=== PATIENT | female | born 1985 | race Hispanic/Latino ===

== ENCOUNTER → 2017-04-29 | Outpatient (CLI) | payer BC ==
--- NOTE | 2017-04-29 12:35 | Diagnostic Imaging Report ---
PROCEDURE:ABDOMINAL ULTRASOUND COMPARISON:None. INDICATIONS:RLQ PAIN TECHNIQUE: Donnelly-scale and color sonographic images were obtained of the abdomen in transverse and sagittal planes. FINDINGS: Liver: 13 cm in length in right midclavicular line. Mildly increased echogenicity. No masses. Main portal vein: 0.9 cm, hepatopetal flow Gallbladder: Present. No evidence of gallstone, gallbladder wall thickening, or pericholecystic fluid Common Bile Duct: 0.2 Sonographic Grier's sign: Negative Right kidney: 10 cm in length. The echotexture is normal. No evidence of calculus or mass. Left kidney: 11.1 cm in length. The echotexture is normal. No evidence of calculus or mass. Spleen: 10.1 cm. Echotexture is normal. No mass. Pancreas: The visualized portions are unremarkable. Inferior vena cava: Patent Aorta: Within normal limits Ascites: None CONCLUSION: Mildly increased hepatic echotexture suggestive of hepatocellular dysfunction, most commonly steatosis. The other visualized structures are normal. Dictated by: Eric Mejia M.D. on 04/29/2017 at 12:42 Electronically approved by: Eric Mejia M.D. on 04/29/2017 at 12:42
--- NOTE | 2017-04-29 12:38 | Diagnostic Imaging Report ---
PROCEDURE:PELVIC ULTRASOUND COMPARISON:None. INDICATIONS:RLQ PAIN TECHNIQUE: Grayscale transverse and sagittal transabdominal images were obtained of the pelvis. FINDINGS: BLADDER: Underdistended but otherwise normal. UTERUS: Measures 3.4 x 4.7 x 8.2 cm. The myometrial echotexture is normal. There is no evidence of mass. ENDOMETRIUM: Measures 0.4 cm in thickness. It is linear and hyperechoic and is normal. No free fluid in endometrial canal. CERVIX: Normal morphology. RIGHT OVARY: Surgically removed. No adnexal mass. LEFT OVARY: Measures 1.6 x 2.1 x 3.1 cm. The echotexture is normal. There is no evidence of mass. No adnexal mass. There is no free fluid within the pelvis. CONCLUSION: Normal uterus and endometrial stripe. Normal left ovary. Nonvisualization of the right ovary. Dictated by: Eric Mejia M.D. on 04/29/2017 at 12:46 Electronically approved by: Eric Mejia M.D. on 04/29/2017 at 12:46
== END ==
LOC: US 09:24
PROVIDERS: ATTEND Family Medicine
DX: R10.31 Right lower quadrant pain (principal); Z90.721 Acquired absence of ovaries, unilateral; Z87.42 Personal history of other diseases of the female genital tract
CPT/HCPCS: 76700; 76856

== ENCOUNTER 2017-08-08 18:44 | Emergency (ER) | payer BC ==
[~2017-08-08] VITALS: Ht 160 cm; Wt 65.8 kg
--- OUTSIDE RECORDS SUMMARY | 2017-08-08 18:48 | XMS REPORT ---
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 Allergies, Adverse Reactions, Alerts This patient has no known allergies or adverse reactions. Medications This patient has no known medications. Results Test Description Test Time Test Comments Text Results Atomic Results Result Comments US ABDOMEN COMPLETE [place] [address] Patient Name: ALEXA BREWER MR #: [id number] : 1985 Age/Sex: 31/F Req # : [id number] Adm Physician: Ordered by: BRASWELL ANDREW DO Report #: [id number] Location: Room/Bed: Procedure: [id number] US/US ABDOMEN COMPLETE Exam Date: 04/29/17 Exam Time : 954 REPORT STATUS: Signed PROCEDURE: ABDOMINAL ULTRASOUND COMPARISON: None. INDICATIONS: RLQ PAIN TECHNIQUE: Donnelly-scale and color sonographic images were obtained of the abdomen in transverse and sagittal planes. FINDINGS: Liver: 13 cm in length in right midclavicular line. Mildly increased echogenicity. No masses. Main portal vein: 0.9 cm, hepatopetal flow Gallbladder: Present. No evidence of gallstone, gallbladder wall thickening, or pericholecystic fluid Common Bile Duct: 0.2 Sonographic Grier's sign: Negative Right kidney: 10 cm in length. The echotexture is normal. No evidence of calculus or mass. Left kidney: 11.1 cm in length. The echotexture is normal. No evidence of calculus or mass. Spleen: 10.1 cm. Echotexture is normal. No mass. Pancreas: The visualized portions are unremarkable. Inferior vena cava: Patent Aorta: Within normal limits Ascites: None CONCLUSION: Mildly increased hepatic echotexture suggestive of hepatocellular dysfunction, most commonly steatosis. The other visualized structures are normal. Dictated by: Carmencita Mejia M.D. on 04/29/2017 at 12:42 Electronically approved by: Carmencita Mejia M.D. on 04/29/2017 at 12: 42 Dictated By: CARMENCITA MEJIA MD 124 Transcribed By: ROSSY on 04/29/17 1242 COPY TO: JUDIT BRASWELL DO US PELVIS COMPLETE NON OB [place] [address] Patient Name: ALEXA BREWER MR #: [id number] : 1985 Age/Sex: 31/F Req #: [id number] Adm Physician: Ordered by: BRASWELL ANDREW DO Report #: [id number] Location: Room/Bed: Procedure: [id number] US/US PELVIS COMPLETE NON OB Exam Date: 04/29/17 Exam Time: 1005 REPORT STATUS: Signed PROCEDURE: PELVIC ULTRASOUND COMPARISON: None. INDICATIONS: RLQ PAIN TECHNIQUE: Grayscale transverse and sagittal transabdominal images were obtained of the pelvis. FINDINGS: BLADDER: Underdistended but otherwise normal. UTERUS: Measures 3.4 x 4.7 x 8.2 cm. The myometrial echotexture is normal. There is no evidence of mass. ENDOMETRIUM: Measures 0.4 cm in thickness. It is linear and hyperechoic and is normal. No free fluid in endometrial canal. CERVIX: Normal morphology. RIGHT OVARY: Surgically removed. No adnexal mass. LEFT OVARY: Measures 1.6 x 2.1 x 3.1 cm. The echotexture is normal. There is no evidence of mass. No adnexal mass. There is no free fluid within the pelvis. CONCLUSION : Normal uterus and endometrial stripe. Normal left ovary. Nonvisualization of the right ovary. Dictated by: Carmencita Mejia M.D. on at 12:46 Electronically approved by: Carmencita Mejia M.D. on at 12:46 Dictated By: CARMENCITA MEJIA MD 1246 Transcribed By : ROSSY on 04/29/17 1246 COPY TO: JUDIT BRASWELL DO
[2017-08-08] MEDS ORDERED: ONDANSETRON HCL INJ 2 MG/ML VIAL IV STA (19:18)
[2017-08-08] MEDS ORDERED: MAGNESIUM/ALUMINUM/SIMETHICONE 30 ML UDC PO ONE (19:30)
[2017-08-08] MEDS ORDERED: LIDOCAINE VISC 2% SOLN 15 ML UDC PO ONE (19:30)
[2017-08-08 19:57] LABS: BASOPHILS # (AUTO) 0.1 (0.0-0.1); BASOPHILS % 1.1 % (0.0-1.0); EOSINOPHILS # (AUTO) 0.1 (0.0-0.4); EOSINOPHILS % 1.1 % (0.0-6.0); HEMATOCRIT 37.5 % (34.2-44.1); LYMPHOCYTES # (AUTO) 2.4 (1.0-3.2); LYMPHOCYTES % 31.6 % (18.0-39.1); MEAN CORPUSCULAR HEMOGLOBIN 24.2 pg (28-32); MEAN CORPUSCULAR VOLUME 75.6 fL (81-99); MONOCYTES # (AUTO) 0.8 (0.2-0.8); MONOCYTES % 9.9 % (4.4-11.3); NEUTROPHILS # (AUTO) 4.3 (2.1-6.9); PLATELET COUNT 321 x10e3/uL (140-360); RED BLOOD COUNT 4.96 x10e6/uL (3.6-5.1)
[2017-08-08 19:59] LABS: BILIRUBIN,URINE NEGATIVE (NEGATIVE); CLARITY,URINE SL CLOUDY (CLEAR); COLOR,URINE YELLOW (YELLOW); KETONES,URINE NEGATIVE (NEGATIVE); LEUKOCYTE ESTERASE ,URINE NEGATIVE (NEGATIVE); NITRITE,URINE NEGATIVE (NEGATIVE); PREGNANCY TEST, URINE NEGATIVE (NEGATIVE); PROTEIN,URINE DIPSTICK NEGATIVE (NEGATIVE); URINE UROBILINOGEN 0.2 mg/dL (0.2 - 1)
[2017-08-08 20:10] LABS: EPITHELIAL CELLS,URINE MODERATE /LPF; RBC,URINE 21-50 /HPF (0-5)
[2017-08-08 20:12] LABS: ALANINE AMINOTRANSFERASE 16 IU/L (0-55); ALBUMIN 3.8 g/dL (3.5-5.0); ALBUMIN/GLOBULIN RATIO 0.8 (0.8-2.0); ALKALINE PHOSPHATASE 67 IU/L (40-150); AMYLASE 94 U/L (25-125); ANION GAP 12.5 mmol/L (8-16); BLOOD UREA NITROGEN 9 mg/dL (7-26); BUN/CREATININE RATIO 12 (6-25); CALCIUM 9.2 mg/dL (8.4-10.2); CARBON DIOXIDE 24 mmol/L (22-29); CHLORIDE 101 mmol/L (98-107); CREATININE, SERUM 0.78 mg/dL (0.57-1.11); EST GLOMERULAR FILTRATION RATE > 60 ML/MIN (60-); GLUCOSE 95 mg/dL (74-118); LIPASE 46 U/L (8-78); POTASSIUM 3.5 mmol/L (3.5-5.1); SODIUM 134 mmol/L (136-145)
[2017-08-08] MEDS ORDERED: BELLADONNA ALK/PHENOBARBITAL 5 ML UDC PO SCH (21:00)
--- NOTE | 2017-08-08 21:35 | Diagnostic Imaging Report ---
EXAM: US GALLBLADDER DATE: 08/08/2017 7:18 PM INDICATION: \S\ABD PAIN \S\Y COMPARISON: 1.518 TECHNIQUE: Transverse and longitudinal linda scale and color doppler sonographic images of the upper abdomen were obtained. FINDINGS: LIVER 12.7 cm in the right midclavicular line. Increased echogenicity, normal contour, no masses. GALLBLADDER No stones, sludge or pericholecystic fluid. Contracted gallbladder, with likely pseudothickening of the wall, 0.35 cm Negative sonographic Grier's sign. BILE DUCTS No intra nor extra-hepatic biliary dilation. Common bile duct measures 0.3 cm PANCREAS: Visualized portions are normal. RIGHT KIDNEY: 9.0 cm Echogenicity: Normal Collecting System: No hydronephrosis Stones: None Cyst/Mass: None VESSELS: Aorta: Visualized portions are within normal size limits Inferior Vena Cava: Visualized portions are normal Main Portal Vein: hepatopetal flow. FREE FLUID: None IMPRESSION: 1. Hepatic steatosis. 2. No cholelithiasis or evidence of acute cholecystitis. Signed by: Dr Ayleen Masters MD on 08/08/2017 9:31 PM
[2017-08-08 22:07] VITALS: BP 128/79
== END 2017-08-08 22:10 | disposition home or self-care (01) ==
LOC: ER 18:48
DX: R10.11 Right upper quadrant pain (principal); R10.13 Epigastric pain
CPT/HCPCS: 36415; 76705; 80053; 81001; 81025; 82150; 83690; 85025; 87086; 99284

== ENCOUNTER 2017-08-13 07:14 | Emergency (ER) | payer BC ==
--- OUTSIDE RECORDS SUMMARY | 2017-08-13 07:20 | XMS REPORT | Continuity of Care Document ---
Author Author [facility] Organization [facility] Address [address] [place] [address] Phone Unavailable Care Team Providers Care Telephone Maintenance Mechanic Name Role Phone NO, PCP PCP Unavailable Insurance Providers Guarantor Alexa Lo Address [address] [place] [address] Email [email or web address] [employer] Policy Number [id number] Subscriber's Name Alexa Lo Relationship 18 Self / Same As Patient Group Number [id number] Effective Date 17 Advance Directives Directive Response Recorded Date/Time Does the patient have an advance directive? No 04/29/17 9:24am If yes, is advance directive on file with [facility]? No 04/29/17 9:24am If not on file with [facility] will patient provide a copy? No 04/29/17 9:24am Problems No problem information available. Medications No medication information available. Social History No social history information available. Hospital Discharge Instructions No hospital discharge instruction information available. Plan of Care Discharge Date 08/08/17 10:10pm Disposition HOME, SELF-CARE Condition at Discharge Improved Instructions/Education Provided Abdominal Pain - Adult Forms Provided Work/School Excuse Prescriptions See Medication Section Referrals NATHEN CORONEL MD Address: [address] [place] [address] ALEKSANDR PETERSEN MD Address: [address] [place], [place] [id number] Additional Instructions/Education 1. bland diet 2. follow up with your doctor/GI doctor in 1-2 days without fail 3. return to ed as needed Functional Status No functional status information available. Allergies, Adverse Reactions, Alerts No allergy information available. Immunizations No immunization information available. Vital Signs Acute Vital Signs Vital Response Date/Time Pulse Pulse Rate (adult) 68 bpm (60 - 90) 08/08/2017 10:07pm Respiratory Rate 16 bpm (12 - 24) 08/08/2017 10:07pm Blood Pressure 128/79 mm Hg 08/08/2017 10:07pm Height 5 ft 3 in 08/08/2017 6:47pm Weight 145 lb 08/08/2017 6:47pm Body Mass Index 25.7 kg/m^2 08/08/2017 6:47pm Results Laboratory Results Test Name Result Units Flags Reference Collection Date/Time Result Date/ Time Comments White Blood Count 7.60 x10e3/uL 4.8-10.8 08/08/2017 7:43pm 08/08/2017 7 :57pm Red Blood Count 4.96 x10e6/uL 3.6-5.1 08/08/2017 7:43pm 08/08/2017 7: 57pm Hemoglobin 12.0 g/dL 12.0-16.0 08/08/2017 7:43pm 08/08/2017 7:57pm Hematocrit 37.5 % 34.2-44.1 08/08/2017 7:43pm 08/08/2017 7:57pm Mean Corpuscular Volume 75.6 fL L 81-99 08/08/2017 7:43pm 08/08/2017 7: 57pm Mean Corpuscular Hemoglobin 24.2 pg L 28-32 08/08/2017 7:43pm 2017 7:57pm Mean Corpuscular Hemoglobin Concent 32.0 g/dL 31-35 08/08/2017 7:43pm 08/08/2017 7:57pm Red Cell Distribution Width 15.0 % H 11.7-14.4 08/08/2017 7:43pm 2017 7:57pm Platelet Count 321 x10e3/uL 140-360 08/08/2017 7:43pm 08/08/2017 7: 57pm Neutrophils (%) (Auto) 56.0 % 38.7-80.0 08/08/2017 7:43pm 08/08/2017 7: 57pm Lymphocytes (%) (Auto) 31.6 % 18.0-39.1 08/08/2017 7:43pm 08/08/2017 7: 57pm Monocytes (%) (Auto) 9.9 % 4.4-11.3 08/08/2017 7:43pm 08/08/2017 7: 57pm Eosinophils (%) (Auto) 1.1 % 0.0-6.0 08/08/2017 7:43pm 08/08/2017 7: 57pm Basophils (%) (Auto) 1.1 % H 0.0-1.0 08/08/2017 7:43pm 08/08/2017 7: 57pm IM GRANULOCYTES % 0.3 % 0.0-1.0 08/08/2017 7:43pm 08/08/2017 7:57pm Neutrophils # (Auto) 4.3 2.1-6.9 08/08/2017 7:43pm 08/08/2017 7:57pm Lymphocytes # (Auto) 2.4 1.0-3.2 08/08/2017 7:43pm 08/08/2017 7:57pm Monocytes # (Auto) 0.8 0.2-0.8 08/08/2017 7:43pm 08/08/2017 7:57pm Eosinophils # (Auto) 0.1 0.0-0.4 08/08/2017 7:43pm 08/08/2017 7:57pm Basophils # (Auto) 0.1 0.0-0.1 08/08/2017 7:43pm 08/08/2017 7:57pm Absolute Immature Granulocyte (auto 0.02 x10e3/uL 0-0.1 08/08/2017 7: 43pm 08/08/2017 7:57pm Urine Color YELLOW YELLOW 08/08/2017 7:50pm 08/08/2017 7:59pm Urine Clarity SL CLOUDY CLEAR 08/08/2017 7:50pm 08/08/2017 7:59pm Urine Specific [place] 1.020 1.010-1.025 08/08/2017 7:50pm 2017 7:59pm Urine pH 5 5 - 7 08/08/2017 7:50pm 08/08/2017 7:59pm Urine Leukocyte Esterase NEGATIVE NEGATIVE 08/08/2017 7:50pm 2017 7:59pm Urine Nitrite NEGATIVE NEGATIVE 08/08/2017 7:50pm 08/08/2017 7:59pm Urine Protein NEGATIVE NEGATIVE 08/08/2017 7:50pm 08/08/2017 7:59pm Urine Glucose (UA) NEGATIVE NEGATIVE 08/08/2017 7:50pm 08/08/2017 7: 59pm Urine Ketones NEGATIVE NEGATIVE 08/08/2017 7:50pm 08/08/2017 7:59pm Urine Urobilinogen 0.2 mg/dL 0.2 - 1 08/08/2017 7:50pm 08/08/2017 7: 59pm Urine Bilirubin NEGATIVE NEGATIVE 08/08/2017 7:50pm 08/08/2017 7: 59pm Urine Blood 2+ H NEGATIVE 08/08/2017 7:50pm 08/08/2017 7:59pm Urine WBC NONE /HPF 0-5 08/08/2017 7:50pm 08/08/2017 8:10pm Urine RBC 21-50 /HPF H 0-5 08/08/2017 7:50pm 08/08/2017 8:10pm Urine Bacteria NONE /HPF NONE 08/08/2017 7:50pm 08/08/2017 8:10pm Urine Epithelial Cells MODERATE /LPF NONE 08/08/2017 7:50pm 08/08/2017 8:10pm Urine Test NEGATIVE NEGATIVE 08/08/2017 7:50pm 08/08/2017 7 :59pm Sodium Level 134 mmol/L L 136-145 08/08/2017 7:43pm 08/08/2017 8:13pm Potassium Level 3.5 mmol/L 3.5-5.1 08/08/2017 7:43pm 08/08/2017 8:13pm Chloride Level 101 mmol/L 98-107 08/08/2017 7:43pm 08/08/2017 8:13pm Carbon Dioxide Level 24 mmol/L 22-29 08/08/2017 7:43pm 08/08/2017 8: 13pm Anion Gap 12.5 mmol/L 8-08/08/2017 7:43pm 08/08/2017 8:13pm Blood Urea Nitrogen 9 mg/dL 7-08/08/2017 7:43pm 08/08/2017 8:13pm Creatinine 0.78 mg/dL 0.57-1.11 08/08/2017 7:43pm 08/08/2017 8:13pm BUN/Creatinine Ratio 12 6-25 08/08/2017 7:43pm 08/08/2017 8:13pm Estimat Glomerular Filtration Rate > 60 ML/MIN 60- 08/08/2017 7:43pm 8:13pm Ranges were taken from the National Kidney Disease Education Program and the National Kid[employer] literature. Reference ranges: 60 or greater: Normal 16-59 (for 3 consecutive months): Chronic kidney disease 15 or less: Kidney failure Glucose Level 95 mg/dL 74-118 08/08/2017 7:43pm 08/08/2017 8:13pm Calcium Level 9.2 mg/dL 8.4-10.2 08/08/2017 7:43pm 08/08/2017 8:13pm Total Bilirubin 0.5 mg/dL 0.2-1.2 08/08/2017 7:43pm 08/08/2017 8:13pm Aspartate Amino Transf (AST/SGOT) 17 IU/L 5-34 08/08/2017 7:43pm 2017 8:13pm Alanine Aminotransferase (ALT/SGPT) 16 IU/L 0-55 08/08/2017 7:43pm 8:13pm Total Protein 8.3 g/dL H 6.5-8.1 08/08/2017 7:43pm 08/08/2017 8:13pm Albumin 3.8 g/dL 3.5-5.0 08/08/2017 7:43pm 08/08/2017 8:13pm Globulin 4.5 g/dL H 2.3-3.5 08/08/2017 7:43pm 08/08/2017 8:13pm Albumin/Globulin Ratio 0.8 0.8-2.0 08/08/2017 7:43pm 08/08/2017 8: 13pm Alkaline Phosphatase 67 IU/L 40-150 08/08/2017 7:43pm 08/08/2017 8: 13pm Amylase Level 94 U/L 25-125 08/08/2017 7:43pm 08/08/2017 8:13pm Lipase 46 U/L 8-78 08/08/2017 7:43pm 08/08/2017 8:13pm Procedures Procedure Status Date Provider(s) US abdomen complete Active 04/29/17 JUDIT BRASWELL DO Complete non-obstetrical ultrasound of pelvis Active 04/29/17 JUDIT BRASWELL DO US gallbladder Active 08/08/17 SHAYAN MAGDALENO LEADERSHIP RECRUITER Encounters Encounter Location Arrival/Admit Date Discharge/Depart Date Attending Provider Departed Emergency Room [facility] 08/08/17 6:48pm 10:10pm FERNANDEZ LO MD Registered Clinic [facility] 04/29/17 9:24am JUDIT BRASWELL DO
[2017-08-13] MEDS ORDERED: SODIUM CHLORIDE 0.9% 1000ML 1,000 ML IV SCH (07:45)
[2017-08-13] MEDS ORDERED: CEFTRIAXONE SOD 1 GM VIAL IM ONE (08:15)
== END 2017-08-13 08:55 | disposition home or self-care (01) ==
LOC: FSED 07:14
DX: N93.9 Abnormal uterine and vaginal bleeding, unspecified (principal); N92.4 Excessive bleeding in the premenopausal period; N30.91 Cystitis, unspecified with hematuria
CPT/HCPCS: 71046; 80076; 81003; 81025; 85025; 85379; 96360; 96372; 99284; J0696; J7030

== ENCOUNTER 2018-09-07 11:30 | Emergency (ER) | payer OTHER ==
[~2018-09-07] VITALS: Ht 160 cm; Wt 68.0 kg
--- OUTSIDE RECORDS SUMMARY | 2018-09-07 11:32 | XMS REPORT | Continuity of Care Document ---
Author Author [facility] Interface Address Unknown Phone Unavailable Problems Problem Status Onset Date Classification Date Reported Comments Source HYSTEROSCOPY OPERATIVE Active 08/18/2017 [facility] UNK Active 08/18/2017 [facility] Medications Medication Details Route Status Patient Instructions Ordering Provider Order Date Source Allergies, Adverse Reactions, Alerts Substance Category Reaction Severity Reaction type Status Date Reported Comments Source Immunizations Immunization Date Given Site Status Last Updated Comments Source Results Order Name Results Value Reference Range Date Interpretation Comments Source Vital Signs Vital Sign Value Date Comments Source Encounters Location Location Details Encounter Type Encounter Number Reason For Visit Attending Provider ADM Date DC Date Status Source Procedures Procedure Code Date Perfomer Comments Source
--- OUTSIDE RECORDS SUMMARY | 2018-09-07 11:32 | XMS REPORT ---
Author Author Admin, [place] Organization [facility] Address [address] [address] Phone Allergies, Adverse Reactions, Alerts Allergy Name Reaction Description Start Date Severity Status Provider No Known Allergies Dorys Suárez MA Conditions or Problems Problem Name Problem Code Onset Date Status Entry Date Provider Comment Standard Description Annotate ALLERGIC RHINITIS 477.9 Active Kelly Coe MD Allergic rhinitis, cause unspecified Headache 784.0 Active Kelly Coe MD Headache 12 weeks gestation of V28.9 Active Flores Resendiz MD Encounter for unspecified screening of mother Anxiety 300.00 Active Flores Rseendiz MD Anxiety state, unspecified Diarrhea 787.91 Active Flores Resendiz MD Diarrhea Missed period 626.8 Active Flores Resendiz MD Other disorders of menstruation and other abnormal bleeding from female genital tract Overweight Active Flores Resendiz MD Overweight care; other, first trimester V22.1 Active Flores Resendiz MD Supervision of other normal 8 weeks gestation of ICD-V28.9 Inactive Flores Resendiz MD 8 weeks gestation of V28.9 Resolved Flores Resendiz MD Encounter for unspecified screening of mother Medication List Medication Instructions Start Date Stop Date Generic Name NDC Status Provider Patient Instruction LORATADINE 10 MG ORAL TABLET 1 By Mouth once a day as needed for allergies LORATADINE 44526292275 Active Kelly Coe MD Active ADULT ASPIRIN EC LOW STRENGTH 81 MG ORAL TABLET DELAYED RELEASE 1 By Mouth Every daily ADULT ASPIRIN EC LOW STRENGTH 81 MG ORAL TABLET DELAYED RELEASE ASPIRIN Inactive TERAZOL 7 0.4 % VAGINAL CREAM 1 application Every daily TERAZOL 7 0.4 % VAGINAL CREAM 190775 TERCONAZOLE Inactive DIFLUCAN 150 MG ORAL TABLET 1 po x 1 DIFLUCAN 150 MG ORAL TABLET 372558 FLUCONAZOLE Inactive ADULT ASPIRIN EC LOW STRENGTH 81 MG ORAL TABLET DELAYED RELEASE 1 By Mouth Every daily ASPIRIN 63816645976 No Longer Active Kelly Coe MD Active TERAZOL 7 0.4 % VAGINAL CREAM 1 application Every daily TERCONAZOLE [id number] No Longer Active Kelly Coe MD Active DIFLUCAN 150 MG ORAL TABLET 1 po x 1 FLUCONAZOLE [id number] No Longer Active Flores Resendiz MD Active Vital Signs Date Name Value Unit Range Description blood pressure, diastolic 72 mm[Hg] BP mckeon blood pressure, systolic 124 mm[Hg] BP sys height E&M 63 [in_us] Bdy height pulse rate E&M 71 /min Heart rate respiratory rate E&M 14 /min Resp rate temperature E&M 98.4 [degF] Body temperature weight E&M 152.80 [lb_av] Weight Measured blood pressure, diastolic 76 mm[Hg] BP mckeon blood pressure, systolic 129 mm[Hg] BP sys height E&M 63 [in_us] Bdy height pulse rate E&M 80 /min Heart rate respiratory rate E&M 17 /min Resp rate temperature E&M 98.6 [degF] Body temperature weight E&M 149 [lb_av] Weight Measured blood pressure, diastolic 75 mm[Hg] BP mckeon blood pressure, systolic 118 mm[Hg] BP sys height E&M 63 [in_us] Bdy height pulse rate E&M 69 /min Heart rate respiratory rate E&M 17 /min Resp rate temperature E&M 98.4 [degF] Body temperature weight E&M 150 [lb_av] Weight Measured blood pressure, diastolic 75 mm[Hg] BP mckeon blood pressure, systolic 124 mm[Hg] BP sys height E&M 63 [in_us] Bdy height pulse rate E&M 78 /min Heart rate respiratory rate E&M 17 /min Resp rate temperature E&M 98.7 [degF] Body temperature weight E&M 151.38 [lb_av] Weight Measured blood pressure, diastolic 72 mm[Hg] BP mckeon blood pressure, systolic 128 mm[Hg] BP sys height E&M 63 [in_us] Bdy height pulse rate E&M 64 /min Heart rate respiratory rate E&M 16 /min Resp rate temperature E&M 98.6 [degF] Body temperature weight E&M 153 [lb_av] Weight Measured Diagnostic Results Date Name Value Unit Range Description Lab Report: Ct, Ng, Trich vag by MIKEL - Microbiology Neisseria gonorrhoeae DNA probe Negative Negative Lab Report: CBC With Differential/Platelet, ABO Grouping and Rho(D) Typi ... - Blood bank Rh antibody Negative Negative Lab Report: CBC With Differential/Platelet, ABO Grouping and Rho(D) Typi ... - Hematology hematocrit, blood 35.8 % 34.0-46.6 Lab Report: CBC With Differential/Platelet, ABO Grouping and Rho(D) Typi ... - Urinalysis urine culture No growth Lab Report: CBC With Differential/Platelet, ABO Grouping and Rho(D) Typi ... - Hematology neutrophils as percent of blood leukocytes 62 % Not Estab. basophils as percent of blood leukocytes 0 % Not Estab. Office Visit: Initial Visit - Urinalysis protein, urine, semiquantitative (dipstick) negative Lab Report: CBC With Differential/Platelet, ABO Grouping and Rho(D) Typi ... - Blood bank ABO blood group O Lab Report: CBC With Differential/Platelet, ABO Grouping and Rho(D) Typi ... - Serology rapid plasma reagin antibody, serum Non Reactive Non Reactive Internal Other: - Chemistry beta HCG, urine, semiquantitative positive Lab Report: CBC With Differential/Platelet, ABO Grouping and Rho(D) Typi ... - Chemistry hepatitis B surface antigen Negative Negative Lab Report: CBC With Differential/Platelet, ABO Grouping and Rho(D) Typi ... - Hematology mean corpuscular hemoglobin, RBC 22.6 pg 26.6-33.0 Office Visit: Initial Visit - Urinalysis leukocyte esterase, urine, by dipstick negative Lab Report: CBC With Differential/Platelet, ABO Grouping and Rho(D) Typi ... - Hematology mean corpuscular hemoglobin concentration, RBC 31.6 G/DL % 31.5-35.7 Office Visit: Initial Visit - Urinalysis specific gravity, urine 1.015 Office Visit: Return: Rm4 - Microbiology Herpes Simplex Virus Genital no Lab Report: CBC With Differential/Platelet, ABO Grouping and Rho(D) Typi ... - Hematology erythrocyte (RBC) count 5.01 X10E6/UL 10*6/mm3 3.77-5.28 Office Visit: Initial Visit - Urinalysis nitrite, urine, semiquantitative negative Lab Report: CBC With Differential/Platelet, ABO Grouping and Rho(D) Typi ... - Hematology hemoglobin, blood 11.3 g/dL 11.1-15.9 Office Visit: Initial Visit - Urinalysis urine color yellow Lab Report: CBC With Differential/Platelet, ABO Grouping and Rho(D) Typi ... - Blood bank Rh antigen Positive Lab Report: CBC With Differential/Platelet, ABO Grouping and Rho(D) Typi ... - Chemistry Absolute Neutrophils 4.1 X10E3/UL 10*3/uL 1.4-7.0 Office Visit: Initial Visit - Urinalysis bilirubin, urine negative Lab Report: CBC With Differential/Platelet, ABO Grouping and Rho(D) Typi ... - Hematology lymphocytes as percent of blood leukocytes 28 % Not Estab. Office Visit: Return Visit Rm4 - Balance Truing Inspector estimated date of confinement , mother of baby 09/10/2018 Lab Report: CBC With Differential/Platelet, ABO Grouping and Rho(D) Typi ... - Hematology mean corpuscular volume, RBC 72 fL 79-97 Office Visit: Initial Visit - Urinalysis glucose, urine, semiquantitative negative Lab Report: CBC With Differential/Platelet, ABO Grouping and Rho(D) Typi ... - Hematology basophil count, absolute 0.0 x10E3/uL 0.0-0.2 monocytes as percent of blood leukocytes 9 % Not Estab. Eosinophil Absolute Count 0.0 X10E3/UL 10*3/uL 0.0-0.4 eosinophils as percent of blood leukocytes 1 % Not Estab. Lab Report: Ct, Ng, Trich vag by MIKEL - Lab chlamydia DNA probe Negative Negative Office Visit: Initial Visit - Urinalysis blood in urine (hemoglobin) by dipstick negative appearance, urine clear Lab Report: CBC With Differential/Platelet, ABO Grouping and Rho(D) Typi ... - Hematology red blood cell distribution width 17.7 % 12.3-15.4 Office Visit: Initial Visit - Urinalysis urobilinogen, urine, semiquantitative (dipstick) negative Lab Report: CBC With Differential/Platelet, ABO Grouping and Rho(D) Typi ... - Hematology leukocyte count, blood 6.5 X10E3/UL 10*3/mm3 3.4-10.8 Office Visit: Initial Visit - Urinalysis pH, urine, semiquantitative 6.0 Office Visit: Return: Rm4 - Balance Truing Inspector estimated delivery date by last menstrual period 09/10/2018 Lab Report: CBC With Differential/Platelet, ABO Grouping and Rho(D) Typi ... - Hematology monocyte count, blood, automated 0.6 X10E3/UL 10*3/uL 0.1-0.9 Lab Report: CBC With Differential/Platelet, ABO Grouping and Rho(D) Typi ... - Chemistry immature granulocytes, percentage of total cells, blood 0 % Not Estab. Lab Report: CBC With Differential/Platelet, ABO Grouping and Rho(D) Typi ... - Hematology platelet count 284 X10E3/UL 10*3/mm3 150-379 Office Visit: Initial Visit - Urinalysis ketones, urine, by test strip negative Lab Report: CBC With Differential/Platelet, ABO Grouping and Rho(D) Typi ... - Hematology lymphocyte count, blood, automated 1.8 X10E3/UL 10*3/mm3 0.7-3.1 Encounters Date Encounter Provider Code Facility 12:31:50 [employer] Ofc Vst, Est Level III Kelly Coe MD CPT-97816 [facility] 10:51:15 [employer] Est Patient Problem Focus - 74523 Flores Resendiz MD CPT-32349 [facility] 10:37:23 CDT Est Patient Problem Focus - 19613 Flores Resendiz MD CPT-62071 [facility] 13:19:22 CDT Est Patient Problem Focus - 27027 Flores Resendiz MD CPT-55052 [facility] 14:29:19 CDT Est Patient Problem Focus - 55262 Flores Resendiz MD CPT-01844 [facility] OB 11:36:38 CDT New Patient Exp Problem - 44107 Flores Resendiz MD CPT-89893 [facility] Procedures Code Procedure Name Date Entry Date Standard Description CPT-46750 Ultrasound of Uterus- 1st trimester 11:36:38 CDT
[2018-09-07] MEDS ORDERED: ACETAMINOPHEN 325 MG TAB PO NR (12:30)
== END 2018-09-07 12:12 | disposition home or self-care (01) ==
LOC: FSED 11:30
DX: N61.0 Mastitis without abscess (principal)
CPT/HCPCS: 99282

== ENCOUNTER → 2020-09-13 | Day surgery (SDC) | payer OTHER, MEDICARE ==
[~2020-09-13] MED LIST: FENTANYL CITRATE/PF 100MCG/2 ML INJ ONE; LIDOCAINE HCL 2% LOCAL INJ 5 ML SDV VIAL INJ ONE; METOCLOPRAMIDE HCL 10 MG/2ML VIAL ONE; MIDAZOLAM HCL 2 MG/2 ML VIAL ONE; MULTIVITAMINS1 EAC8 PO; PANTOPRAZOLE 40 MG 10ML VIAL ONE; PROPOFOL IV EMULSION 10 MG/ML 20 ML VIAL ONE; SIMETHICONE 40 MG/0.6 ML BTL ONE
== END | disposition home or self-care (01) ==
LOC: OR 06:11
PROVIDERS: ATTEND Internal Medicine Gastroenterology
DX: K29.50 Unspecified chronic gastritis without bleeding (principal); B96.81 Helicobacter pylori [H. pylori] as the cause of diseases classified elsewhere; K21.9 Gastro-esophageal reflux disease without esophagitis; K20.90 Esophagitis, unspecified without bleeding; J30.2 Other seasonal allergic rhinitis; Z01.812 Encounter for preprocedural laboratory examination; Z20.822 Contact with and (suspected) exposure to COVID-19; Z68.29 Body mass index [BMI] 29.0-29.9, adult
CPT/HCPCS: 43239; 81025; C9113; J2001; J2250; J2704; J2765; J3010; U0002